=== PATIENT | male | born 1980 | race Caucasian/White ===

== ENCOUNTER 2017-11-16 10:23 | Emergency (ER) | payer OTHER, BC ==
[2017-11-16] MEDS ORDERED: Sodium Chloride 0.9% 10 ML Syringe FLUSH PRN (10:43)
[2017-11-16] MEDS ORDERED: HYDROmorphone 1 MG/ML Syringe IVPUSH ONE (10:44)
[2017-11-16] MEDS ORDERED: Lactated Ringers 1,000 ML IV SCH (10:45)
[2017-11-16] MEDS ORDERED: HYDROmorphone 0.5 MG/0.5 ML Syringe IVPUSH ONE (11:16)
--- NOTE | 2017-11-16 11:53 | EDM.PDOC ---
ED HPI GENERAL MEDICAL PROBLEM - General Chief Complaint: Upper Extremity Injury/Pain Stated Complaint: LEFT WRIST INJURY Time Seen by Provider: 11/16/17 10:38 Source of Information: Reports: Patient History Limitations: Reports: No Limitations - History of Present Illness INITIAL COMMENTS - FREE TEXT/NARRATIVE: The patient presents with left wrist contreras and deformity after a fall. The patient was at work and he slipped on some ice while getting our of his truck. He did not hit his head or hurt his neck. He has no other injuries but his left wrist. He is right handed. He has a splint on his right wrist. He injured that months ago and he is getting surgery by Dr Sherman soon to repair a tendon. He was at his preop physical this morning before this happened. Onset: Sudden Duration: Minutes: Location: Reports: Upper Extremity, Left (Wrist) Quality: Reports: Sharp Severity: Severe Improves with: Reports: Immobilization Worsens with: Reports: Movement Context: Reports: Trauma (Fell while getting out of his truck) Associated Symptoms: Reports: No Other Symptoms Left Wrist Pain Score (Numeric/FACES): 10 - Related Data Allergies Allergy/AdvReac Type Severity Reaction Status Date / Time No Known Allergies Allergy Verified 11/16/17 10:39 Home Meds: Home Meds Hydrochlorothiazide 25 mg PO DAILY 11/16/17 [History] Hydrocodone/Acetaminophen [Hydrocodon-Acetaminophen 5-325] 1 - 2 each PO Q6HR PRN #20 tablet 11/16/17 [Rx] Losartan [Cozaar] 50 mg PO DAILY 11/16/17 [History] Past Medical History Cardiovascular History: Reports: Hypertension Genitourinary History: Reports: Other (See Below) Other Genitourinary History: vasectomy - Past Surgical History Male Surgical History: Reports: Vasectomy Musculoskeletal Surgical History: Reports: Other (See Below) Other Musculoskeletal Surgeries/Procedures:: back surgery. Scheduled to have surgery on rt wrist in 2 weeks Social & Family History - Tobacco Use Smoking Status *Q: Never Smoker - Caffeine Use Caffeine Use: Reports: Soda - Recreational Drug Use Recreational Drug Use: No Review of Systems - Review of Systems Review Of Systems: See Below Constitutional: Reports: No Symptoms Eyes: Reports: No Symptoms Ears: Reports: No Symptoms Nose: Reports: No Symptoms Mouth/Throat: Reports: No Symptoms Respiratory: Reports: No Symptoms Cardiovascular: Reports: No Symptoms GI/Abdominal: Reports: No Symptoms Genitourinary: Reports: No Symptoms Musculoskeletal: Reports: Other (Left wrist deformity and pain.) ED EXAM, GENERAL - Physical Exam Exam: See Below Exam Limited By: No Limitations General Appearance: Alert, No Apparent Distress Ears: Normal External Exam Nose: Normal Inspection Head: Atraumatic, Normocephalic Neck: Normal Inspection Respiratory/Chest: No Respiratory Distress, Lungs Clear, Normal Breath Sounds Cardiovascular: Regular Rate, Rhythm, No Edema, No Murmur GI/Abdominal: Soft, Non-Tender, No Organomegaly, No Mass Extremities: Other (Left wrist edema and pain upon palpation with deformity. Good sensation and pulses distally. He can move his fingers.) ED TRAUMA EXTREMITY PROCEDURES - Joint Reduction Site: Other (left wrist) Sedation: Conscious Sedation Pre-Procedure NV Status: Normal Post-Procedure NV Status: Normal Number of Attempts: 1 Post-Reduction Imaging: Completely Reduced, Fracture Seen Joint Reduction Complications: No - Splinting Left Upper Extremity Splint Site: Left wrist Pre-Procedure NV Status: Normal Post-Procedure NV Status: Normal Splint Material: Fiberglass Splint Design: Sugar Tong Applied & Form Fitted By: Provider Provider Post-Splint Application NV Check: NV Status Normal, Good Position Complications: No Course - Vital Signs Last Recorded V/S: Last Vital Signs Temp 97.3 F 11/16/17 10:40 Pulse 64 11/16/17 10:40 Resp 18 11/16/17 12:51 BP 116/77 11/16/17 10:40 Pulse Ox 99 11/16/17 12:51 - Orders/Labs/Meds Orders: Active Orders 24 hr Category Date Time Status Peripheral IV Care [RC] . DIRECTED Care 11/16/17 10:43 Active Wrist 2V Lt [CR] Stat Exams 11/16/17 13:14 Taken Wrist Comp Min 3V Lt [CR] Stat Exams 11/16/17 10:44 Taken Wrist wo Cont Lt [CT] Stat Exams 11/16/17 13:33 Ordered Lactated Ringers [Ringers, Lactated] 1,000 ml Med 11/16/17 10:45 Active IV ASDIRECTED Sodium Chloride 0.9% [Saline Flush] Med 11/16/17 10:43 Active 10 ml FLUSH ASDIRECTED PRN Peripheral IV Insertion Adult [OM.PC] Routine Oth 11/16/17 10:43 Ordered Medication Orders Lactated Ringer's (Ringers, Lactated) 1,000 mls @ 100 mls/hr IV ASDIRECTED ROBER Last Admin: 11/16/17 10:56 Dose: 100 mls/hr Sodium Chloride (Saline Flush) 10 ml FLUSH ASDIRECTED PRN PRN Reason: Keep Vein Open Last Admin: 11/16/17 10:56 Dose: 10 ml Meds: Medications Generic Name Dose Route Start Last Admin Trade Name Freq PRN Reason Stop Dose Admin Lactated Ringer's 1,000 mls @ 100 mls/hr 11/16/17 10:45 11/16/17 10:56 Ringers, Lactated IV 100 mls/hr ASDIRECTED ROBER Administration Sodium Chloride 10 ml 11/16/17 10:43 11/16/17 10:56 Saline Flush FLUSH 10 ml ASDIRECTED PRN Administration Keep Vein Open Discontinued Medications Generic Name Dose Route Start Last Admin Trade Name Freq PRN Reason Stop Dose Admin Fentanyl 100 mcg 11/16/17 12:26 11/16/17 12:31 Sublimaze IVPUSH 11/16/17 12:27 100 mcg ONETIME ONE Administration Fentanyl Confirm 11/16/17 13:07 Sublimaze Administered 11/16/17 13:08 Dose 250 mcg .ROUTE .STK-MED ONE Hydromorphone HCl 1 mg 11/16/17 10:44 11/16/17 10:56 Dilaudid IVPUSH 11/16/17 10:45 1 mg ONETIME ONE Administration Hydromorphone HCl 0.5 mg 11/16/17 11:16 11/16/17 11:22 Dilaudid IVPUSH 11/16/17 11:17 0.5 mg ONETIME ONE Administration Lidocaine HCl Confirm 11/16/17 13:07 Xylocaine-Mpf 1% Administered 11/16/17 13:08 Dose 4 mls @ as directed .ROUTE .STK-MED ONE Ketamine HCl Confirm 11/16/17 13:07 Ketalar Administered 11/16/17 13:08 Dose 500 mg .ROUTE .STK-MED ONE Metoclopramide HCl 10 mg 11/16/17 12:36 11/16/17 13:01 Reglan IVPUSH 11/16/17 12:37 10 mg ONETIME ONE Administration Midazolam HCl Confirm 11/16/17 13:07 Versed 1 Mg/Ml Administered 11/16/17 13:08 Dose 2 mg .ROUTE .STK-MED ONE Propofol Confirm 11/16/17 13:06 Diprivan 20 Ml Administered 11/16/17 13:07 Dose 600 mg .ROUTE .STK-MED ONE - Re-Assessments/Exams Free Text/Narrative Re-Assessment/Exam: 11/16/17 11:53 I ordered an IV LR at 100ML/hr, dilaudid 1mg IV and an x-ray. 11/16/17 12:24 His has a distal radius fracture that is interarticular and comminuted. I called [facility] in [place] and talked with Dr Toth the orthopedic surgeon telephone lineman and he wanted me to do a closed reduction and send more films. He is concerned there may be something more serious going on. I have called the [facility] to help with sedation. I gave him more for pain. Dilaudid 0.5mg IV and fentanyl 100mcg IV. 11/16/17 13:48 The [facility] did procedural sedation and anelgesia and I was able to reduce the fracture without difficulty and I splinted his wrist. I called Dr Toth back and he was happy with the alignment and he wanted a CT and he or Dr Sherman will see him next week. Departure - Departure Time of Disposition: 13:55 Disposition: Home, Self-Care 01 Condition: Good Clinical Impression: Fracture of radius and ulna Qualifiers: Encounter type: initial encounter Fracture type: closed Laterality: left Qualified Code(s): S52.92XA - Unspecified fracture of left forearm, initial encounter for closed fracture; S52.202A - Unspecified fracture of shaft of left ulna, initial encounter for closed fracture; S52.202A - Unspecified fracture of shaft of left ulna, initial encounter for closed fracture - Discharge Information Prescriptions: Hydrocodone/Acetaminophen [Hydrocodon-Acetaminophen 5-325] 1 - 2 each PO Q6HR PRN #20 tablet PRN Reason: Pain Referrals: Dajuan Bah MD [Primary Care Provider] - Emory Sherman MD [Consulting Physician] - 1 Week Forms: ED Department Discharge Additional Instructions: Ice your arm for 15 minutes every other hour while awake for 2 days. Elevate your arm up above your heart as much as you can for 2 days. Take motrin or aleve for pain or you can take some hydrocodone for pain. Call Dr Sherman's office and get an appointment for next week. Please return if you are worse. - My Orders Last 24 Hours: My Active Orders 11/16/17 10:43 Peripheral IV Care [RC] . DIRECTED Sodium Chloride 0.9% [Saline Flush] 10 ml FLUSH ASDIRECTED PRN Peripheral IV Insertion Adult [OM.PC] Routine 11/16/17 10:44 Wrist Comp Min 3V Lt [CR] Stat 11/16/17 10:45 Lactated Ringers [Ringers, Lactated] 1,000 ml IV ASDIRECTED 11/16/17 13:14 Wrist 2V Lt [CR] Stat 11/16/17 13:33 Wrist wo Cont Lt [CT] Stat - Assessment/Plan Last 24 Hours: My Active Orders 11/16/17 10:43 Peripheral IV Care [RC] . DIRECTED Sodium Chloride 0.9% [Saline Flush] 10 ml FLUSH ASDIRECTED PRN Peripheral IV Insertion Adult [OM.PC] Routine 11/16/17 10:44 Wrist Comp Min 3V Lt [CR] Stat 11/16/17 10:45 Lactated Ringers [Ringers, Lactated] 1,000 ml IV ASDIRECTED 11/16/17 13:14 Wrist 2V Lt [CR] Stat 11/16/17 13:33 Wrist wo Cont Lt [CT] Stat
[2017-11-16] MEDS ORDERED: fentaNYL 100 MCG/2 ML SDV IVPUSH ONE (12:26)
[2017-11-16] MEDS ORDERED: Metoclopramide 10 MG/2 ML SDV IVPUSH ONE (12:36)
--- NOTE | 2017-11-16 12:51 | PCM.PREANE ---
Preanesthetic Assessment - Procedure Proposed Procedure: Closed Reduction Left Wrist - Anesthesia/Transfusion/Family Hx Anesthesia History: Prior Anesthesia Without Reaction Family History of Anesthesia Reaction: No - Review of Systems General: No Symptoms Pulmonary: No Symptoms Cardiovascular: No Symptoms Gastrointestinal: No Symptoms Neurological: Numbness, Pre-Existing Deficit, Tingling (Left Leg. History of Back Surgery. ), Other (Surgery scheduled for right wrist.) Other: Reports: None - Physical Assessment NPO Status Date: 11/16/17 NPO Status Time: 07:00 O2 Sat by Pulse Oximetry: 99 Respiratory Rate: 18 Vital Signs: Last Vital Signs Temp 36.3 C 11/16/17 10:40 Pulse 64 11/16/17 10:40 Resp 18 11/16/17 10:40 BP 116/77 11/16/17 10:40 Pulse Ox 99 11/16/17 10:40 Height: 1.88 m Weight: 99.79 kg ASA Class: 2 Mental Status: Alert & Oriented x3 Airway Class: Mallampati = 2 Dentition: Reports: Normal Dentition Thyro-Mental Finger Breadths: 3 Mouth Opening Finger Breadths: 3 ROM/Head Extension: Full Lungs: Clear to Auscultation, Normal Respiratory Effort Cardiovascular: Regular Rate, Regular Rhythm - Allergies Allergies/Adverse Reactions: Allergies Allergy/AdvReac Type Severity Reaction Status Date / Time No Known Allergies Allergy Verified 11/16/17 10:39 - Acknowledgements Anesthesia Type Planned: MAC Pt an Appropriate Candidate for the Planned Anesthesia: Yes Alternatives and Risks of Anesthesia Discussed w Pt/Guardian: Yes Pt/Guardian Understands and Agrees with Anesthesia Plan: Yes PreAnesthesia Questionnaire Cardiovascular History: Reports: Hypertension Genitourinary History: Reports: Other (See Below) Other Genitourinary History: vasectomy - Past Surgical History Male Surgical History: Reports: Vasectomy Musculoskeletal Surgical History: Reports: Other (See Below) Other Musculoskeletal Surgeries/Procedures:: back surgery. Scheduled to have surgery on rt wrist in 2 weeks - SUBSTANCE USE Smoking Status *Q: Never Smoker Recreational Drug Use History: No - HOME MEDS Home Medications: Home Meds Hydrochlorothiazide 25 mg PO DAILY 11/16/17 [History] Losartan [Cozaar] 50 mg PO DAILY 11/16/17 [History] - CURRENT (IN HOUSE) MEDS Current Meds: Current Medications Lactated Ringer's (Ringers, Lactated) 1,000 mls @ 100 mls/hr IV ASDIRECTED ROBER Last Admin: 11/16/17 10:56 Dose: 100 mls/hr Sodium Chloride (Saline Flush) 10 ml FLUSH ASDIRECTED PRN PRN Reason: Keep Vein Open Last Admin: 11/16/17 10:56 Dose: 10 ml Discontinued Medications Fentanyl (Sublimaze) 100 mcg IVPUSH ONETIME ONE Stop: 11/16/17 12:27 Last Admin: 11/16/17 12:31 Dose: 100 mcg Hydromorphone HCl (Dilaudid) 1 mg IVPUSH ONETIME ONE Stop: 11/16/17 10:45 Last Admin: 11/16/17 10:56 Dose: 1 mg Hydromorphone HCl (Dilaudid) 0.5 mg IVPUSH ONETIME ONE Stop: 11/16/17 11:17 Last Admin: 11/16/17 11:22 Dose: 0.5 mg Metoclopramide HCl (Reglan) 10 mg IVPUSH ONETIME ONE Stop: 11/16/17 12:37
[2017-11-16] MEDS ORDERED: Propofol 200 MG/20 ML SDV ONE (13:06)
[2017-11-16] MEDS ORDERED: Midazolam 1 MG/ML 2 ML SDV ONE (13:07)
[2017-11-16] MEDS ORDERED: Lidocaine 1% 4 ML ONE (13:07)
[2017-11-16] MEDS ORDERED: Ketamine 500 mg/10 ML MDV ONE (13:07)
[2017-11-16] MEDS ORDERED: fentaNYL 250 MCG/5 ML SDV ONE (13:07)
--- NOTE | 2017-11-16 14:57 | CR ---
Left wrist: Three views of the left wrist were obtained. Comparison: No previous study. Comminuted and displaced distal radial fracture is seen. Fracture involves the metaphysis with epiphyseal extension into the articular margin. Significant posterior displacement and posterior impaction causing dorsal tilt of the distal radial articular margin. Avulsion fracture noted within the ulnar styloid process. Soft tissue swelling is seen. Impression: 1. Fracture with dislocation and angulation as noted above. Diagnostic code #3
--- NOTE | 2017-11-16 14:57 | CR ---
Left wrist: Two views of the left wrist were obtained. Comparison: Previous left wrist exam performed earlier on the same day (time 11:03 AM). Distal radial fracture is again noted with articular extension. Previous impaction and posterior displacement has been corrected. Fracture within the ulnar styloid process is seen. Fiberglass cast or splint is in place. Impression: 1. Significantly improved alignment of previous radial fracture. Fiberglass cast or splint is in place. Diagnostic code #2
--- NOTE | 2017-11-17 07:25 | CT ---
CT left wrist Technique: Multiple axial sections through the left wrist were obtained. Reconstructed coronal and sagittal images were reviewed. Findings: Comminuted distal radial fracture is seen within the metaphysis and epiphysis. There is displacement at the epiphyseal surface by 5 mm. Posterior fragments are displaced posteriorly by 6 mm. Slightly displaced ulnar styloid avulsion fracture is seen. No additional fracture is seen within the wrist. Soft tissue swelling is noted. Impression: 1. Comminuted distal radial fracture within the metaphysis and epiphysis. Widening of the fracture line at the epiphyseal surface is up to 5 mm. Diagnostic code #3 MTDD
== END 2017-11-16 14:30 | disposition home or self-care (01) ==
LOC: JD.ED 10:23
DX: S52.502A Unspecified fracture of the lower end of left radius, initial encounter for closed fracture (principal); S52.612A Displaced fracture of left ulna styloid process, initial encounter for closed fracture; I10 Essential (primary) hypertension; Z79.899 Other long term (current) drug therapy; W00.0XXA Fall on same level due to ice and snow, initial encounter
CPT/HCPCS: 25605; 73100; 73110; 73200; 96361; 96374; 96375; 99152; 99284; J1170; J2250; J2765; J3010; J7050; J7120; 01820; 25565; 29105; J2001; J2704

== ENCOUNTER 2021-10-16 09:24 | Emergency (ER) | payer BC, OTHER ==
--- NOTE | 2021-10-16 10:14 | EDM.PDOC ---
ED HPI GENERAL MEDICAL PROBLEM - General Chief Complaint: ENT Problem Stated Complaint: SORE THROAT Time Seen by Provider: 10/16/21 10:08 Source of Information: Reports: Patient History Limitations: Reports: No Limitations - History of Present Illness INITIAL COMMENTS - FREE TEXT/NARRATIVE: 41-year-old male presents to the ED with chief complaint of a sore throat like swallowing delay razor blades for the last 4 days. Illness started abruptly on September 11. The next day he started with nausea and vomiting and today he had first bout of yellow diarrhea. No cough perhaps fever and chills at home but nothing serious. Onset: Sudden Onset Date: 10/12/21 Duration: Day(s):, Getting Worse Location: Reports: Head ( Mild nasal congestion), Face (Persistent sore throat leg swelling razor blades.), Neck, Other (Generalized myalgia) Quality: Reports: Other (Nausea vomiting and) Severity: Moderate (diarrhea starting this morning.) Improves with: Reports: None Worsens with: Reports: Eating Context: Denies: Activity, Exercise, Lifting (Need to eat or drink.), Sick Contact, Trauma, Other Associated Symptoms: Reports: Fever/Chills (Wraps low-grade fever no chills), Headaches, Loss of Appetite, Malaise, Nausea/Vomiting, Weakness. Denies: No Other Symptoms, Confusion, Chest Pain, Cough, cough w sputum, Diaphoresis, Rash, Seizure, Shortness of Breath, Syncope, Other Treatments REFERRAL AND INFORMATION AIDE: Reports: Acetaminophen, Other (see below) (Nothing will stay down the last few days) Throat Pain Score (Numeric/FACES): 6 - Related Data Allergies Allergy/AdvReac Type Severity Reaction Status Date / Time ondansetron [From Zofran] Allergy Nausea Verified 10/16/21 09:41 Home Meds: Home Meds Hydrochlorothiazide 25 mg PO DAILY 11/16/17 [History] Losartan [Cozaar] 50 mg PO DAILY 11/16/17 [History] Hydrocodone/Acetaminophen [HYDROcodone-Acetaminophen 7.5-325 MG] 1 each PO Q4H PRN #12 tablet 10/16/21 [Rx] Metoclopramide HCl [Reglan] 10 mg PO Q6H #6 tablet 10/16/21 [Rx] Omeprazole 20 mg PO DAILY 10/16/21 [History] Past Medical History - Past Health History Medical/Surgical History: Denies Medical/Surgical History Cardiovascular History: Reports: Hypertension Gastrointestinal History: Reports: GERD Genitourinary History: Reports: Other (See Below) Other Genitourinary History: vasectomy - Past Surgical History Male Surgical History: Reports: Vasectomy Social & Family History - Tobacco Use Tobacco Use Status *Q: Never Tobacco User - Caffeine Use Caffeine Use: Reports: Soda - Living Situation & Occupation Living situation: Reports: Occupation: Employed ED ROS ENT - Review of Systems Review Of Systems: See Below Constitutional: Reports: Fever, Malaise, Weakness, Fatigue, Decreased Appetite. Denies: Chills HEENT: Reports: Throat Pain (Severe sore throat for 4 days) Respiratory: Reports: No Symptoms Cardiovascular: Reports: No Symptoms Endocrine: Reports: Fatigue GI/Abdominal: Reports: Diarrhea (First diarrhea stool was this morning yellow fairly large volume), Decreased Appetite, Nausea (Intermittent nausea and vomiting), Vomiting (Ileus.). Denies: Abdominal Pain : Reports: Other (Urine is quite dark and linda in color) Musculoskeletal: Reports: Muscle Pain Skin: Reports: No Symptoms (Generalized myalgia) Neurological: Reports: Dizziness, Headache Psychiatric: Reports: No Symptoms Hematologic/Lymphatic: Reports: No Symptoms Immunologic: Reports: No Symptoms ED EXAM, ENT - Physical Exam Exam: See Below Exam Limited By: No Limitations General Appearance: Alert, WD/WN, No Apparent Distress, Other (Temperature is 36.3 and he does not feel warm palpation. Heart rate 76 and sinus respiratory is 18 with O2 sats 100% room air. BP 143/98) Eye Exam: Bilateral Eye: Normal Inspection (No blepharal pallor or scleral icterus), PERRL Mouth/Throat: Pharyngeal Erythema Head: Atraumatic, Normocephalic Neck: Normal Inspection, Supple, Non-Tender, Full Range of Motion. No: Carotid Bruit, Lymphadenopathy (L), Lymphadenopathy (R) Respiratory/Chest: No Respiratory Distress, Lungs Clear, Normal Breath Sounds, No Accessory Muscle Use Cardiovascular: Normal Peripheral Pulses, Regular Rate, Rhythm, No Edema, No Gallop, No JVD, No Murmur GI/Abdominal: Non-Tender, No Organomegaly, No Distention, Other (Bowel sounds are few and far between). No: Guarding, Rigid, Rebound Back: Normal Inspection. No: Full Range of Motion Extremities: Normal Inspection, Normal Range of Motion, Non-Tender, No Pedal Edema Neurological: Alert, Oriented, CN II-XII Intact, Normal Cognition Psychiatric: Normal Affect, Normal Mood Skin: Warm, Dry, Intact, Normal Color, No Rash Course - Vital Signs Last Recorded V/S: Last Vital Signs Temp 36.3 C 10/16/21 09:37 Pulse 76 10/16/21 09:37 Resp 18 10/16/21 09:37 BP 143/98 H 10/16/21 09:37 Pulse Ox 100 10/16/21 09:37 Orthostatic Blood Pressure [ 142/101 Standing] Orthostatic Blood Pressure [ 144/99 Supine] - Orders/Labs/Meds Orders: Active Orders 24 hr Category Date Time Status Orthostatic Vital Signs [RC] ASDIRECTED Care 10/16/21 10:13 Active Labs: Laboratory Tests 10/16/21 10/16/21 Range/Units 09:35 09:35 Influenza Type A RNA Negative (NEGATIVE) Influenza Type B RNA Negative (NEGATIVE) SARS-CoV-2 RNA (AUBREY) Positive H (NEGATIVE) Group A Strep (PCR) Not detected (NOT DETECT) Meds: Medications Discontinued Medications Generic Name Dose Route Start Last Admin Trade Name Freq PRN Reason Stop Dose Admin Metoclopramide HCl 10 mg 10/16/21 10:15 10/16/21 10:19 Metoclopramide 10 Mg Tab PO 10/16/21 10:16 10 mg ONETIME ONE Administration - Radiology Interpretation Free Text/Narrative:: 41-year-old male presents to the ED with acute onset of illness starting October 12. Mostly started with sore throat mild nasal congestion. Subsequently the next day it started with nausea vomiting which is proximal persisted intermittently. This morning had 1 loose yellow diarrhea stool. Minimal cough no sputum production mild generalized myalgia examination reveals mild erythema of the oropharynx. Lungs are clear oxygen is 100% on room air. Benign abdomen. Possible COVID-19 illness. Or he is not orthostatic. He is allergic to Zofran. Will give Reglan 10 mg oral tablets if it stays down. Influenza and COVID-19 screen as well as rapid strep obtained. - Re-Assessments/Exams Free Text/Narrative Re-Assessment/Exam: 10/16/21 10:36 COVID-19 screen came back negative. Rapid strep is negative. Influenza screen was negative. Departure - Departure Time of Disposition: 10:36 Disposition: Home, Self-Care 01 Condition: Fair Clinical Impression: COVID-19 determined by clinical diagnostic criteria, Nausea and vomiting, Diarrhea - Discharge Information *PRESCRIPTION DRUG MONITORING PROGRAM REVIEWED*: Not Applicable *COPY OF PRESCRIPTION DRUG MONITORING REPORT IN PATIENT TASNEEM: Not Applicable Prescriptions: Hydrocodone/Acetaminophen [HYDROcodone-Acetaminophen 7.5-325 MG] 1 each PO Q4H PRN #12 tablet PRN Reason: Pain relief Metoclopramide HCl [Reglan] 10 mg PO Q6H #6 tablet Instructions: COVID-19 Frequently Asked Questions, What You Should Know About COVID-19 to Protect Yourself and Others - [facility], 10 Things You Can Do to Manage Your COVID-19 Symptoms at Home - [facility] (06/11/2021), Nausea, Adult, [id number], COVID-19: Quarantine vs. Isolation - [facility] (11/12/2020), Diarrhea, Adult, [id number] Referrals: Dajuan Bah MD [Primary Care Provider] - Forms: ED Department Discharge, ED Return to Work/School Form Additional Instructions: Evaluation in the emergency room today in regards to illness starting on October 12. Started with sore throat mild nasal congestion and has progressed to nausea vomiting mild diarrhea and minimal cough at this time. COVID-19 screen did come back positive. You will likely going to develop more cough and congestion. Illness tends to be worse from day 8-11 from the time of onset. Return to medical care if you feel increased shortness of breath. In the interim plenty of fluids such as Gatorade or Powerade may dilute to reduce irritation of your very sore throat. Reglan 10 mg by mouth every 6-8 hours as needed for relief of nausea or vomiting. Hydrocodone 7.5/325 mg tablet usually 1 tablet every 4 hours as necessary for relief of severe sore throat pain will also reduce some of the diarrhea. You should consider yourself contagious to others for at least another 8 days. Note given to excuse her from the workplace next week. Sepsis Event Note (ED) - Evaluation Sepsis Screening Result: No Definite Risk - Focused Exam Vital Signs: Vital Signs Temp Pulse Resp BP Pulse Ox 10/16/21 09:37 36.3 C 76 18 143/98 H 100 - My Orders Last 24 Hours: My Active Orders 10/16/21 10:13 Orthostatic Vital Signs [RC] ASDIRECTED - Assessment/Plan Last 24 Hours: My Active Orders 10/16/21 10:13 Orthostatic Vital Signs [RC] ASDIRECTED
[2021-10-16] MEDS ORDERED: Metoclopramide 10 MG Tab PO ONE (10:15)
[2021-10-16 10:24] LABS: CORONAVIRUS COVID-19 NAA POSITIVE (NEGATIVE)
== END 2021-10-16 11:12 | disposition home or self-care (01) ==
LOC: JD.ED 09:24
DX: U07.1 COVID-19 (principal); R11.2 Nausea with vomiting, unspecified; R19.7 Diarrhea, unspecified; I10 Essential (primary) hypertension; K21.9 Gastro-esophageal reflux disease without esophagitis; Z88.8 Allergy status to other drugs, medicaments and biological substances; Z79.899 Other long term (current) drug therapy; Z20.822 Contact with and (suspected) exposure to COVID-19
CPT/HCPCS: 0240U; 87651; 99283; A9270